=== PATIENT | female | born 1955 | race Caucasian/White ===

== ENCOUNTER → 2021-01-19 | Outpatient (CLI) | payer OTHER, SELFPAY ==
[~2021-01-19] MED LIST: ASPIRIN EC81 MG PO; ATORVASTATIN CA10 MG PO; BIOTIN PO; BIOTIN1 MG PO; CALCIUM +D PO; CALCIUM 600 +1 EAC7 PO; COMPLETE SENIO1 EACH PO; ECOTRIN81 MG PO; FAMOTIDINE40 MG PO; FISH OIL 1,0001 EAC3 PO; FISH OIL 1,0001 EAC4 PO; FLUOXETINE HCL20 M1 PO; FLUTICASONE PRO16 GM; LUTEIN PO; LUTEIN20 M1 PO; NORCO 5-325 TA1 EACH PO; RABEPRAZOLE SOD20 MG PO; VIT C PO; VITAMIN C500 M1 PO; VITAMIN C500 M4 PO
[2021-01-19 10:23] LABS: HEMOGLOBIN 13.2 gm/dl (12.3-15.3); RED BLOOD COUNT 4.34 M/UL (4.00-5.10); WHITE BLOOD COUNT 3.8 K/UL (4.5-11.0)
[2021-01-19 10:45] LABS: BUN/CREATININE RATIO 17 (0-10)
== END ==
LOC: LAB 09:06
PROVIDERS: Internal Medicine
DX: J30.9 Allergic rhinitis, unspecified (principal); E78.5 Hyperlipidemia, unspecified; R53.83 Other fatigue; E55.9 Vitamin D deficiency, unspecified
CPT/HCPCS: 36415; 80053; 80061; 82607; 82746; 84439; 84443; 85025

== ENCOUNTER → 2021-04-24 | Outpatient (CLI) | payer OTHER, SELFPAY | LOC: KOH-I 11:11 | DX: M25.531 Pain in right wrist (principal); M25.532 Pain in left wrist; M19.032 Primary osteoarthritis, left wrist; M19.031 Primary osteoarthritis, right wrist; M19.042 Primary osteoarthritis, left hand; M19.041 Primary osteoarthritis, right hand | CPT/HCPCS: 73110; 73130 ==

== ENCOUNTER → 2021-06-07 | Outpatient (CLI) | payer OTHER, SELFPAY | LOC: MAMO 12:40 | DX: Z12.31 Encounter for screening mammogram for malignant neoplasm of breast (principal); M85.80 Other specified disorders of bone density and structure, unspecified site; M85.88 Other specified disorders of bone density and structure, other site | CPT/HCPCS: 77063; 77067; 77080 ==

== ENCOUNTER 2021-12-15 11:19 | Emergency (ER) | payer OTHER | END 2021-12-15 14:11 | disposition home or self-care (01) | LOC: ER1 11:19 | DX: M20.011 Mallet finger of right finger(s) (principal); Y93.9 Activity, unspecified; Y92.009 Unspecified place in unspecified non-institutional (private) residence as the place of occurrence of the external cause; X50.1XXA Overexertion from prolonged static or awkward postures, initial encounter | CPT/HCPCS: 29130; 73130; 99283 ==

== ENCOUNTER → 2022-03-12 | Outpatient (CLI) | payer OTHER | LOC: KOH-I 13:43 | DX: M79.672 Pain in left foot (principal); M19.072 Primary osteoarthritis, left ankle and foot | CPT/HCPCS: 73630 ==

== ENCOUNTER → 2022-08-02 | Outpatient (CLI) | payer MEDICARE | LOC: LAB 16:56 | DX: R51.9 Headache, unspecified (principal) | CPT/HCPCS: 36415; 82565; 84520 ==

== ENCOUNTER → 2022-08-06 | Outpatient (CLI) | payer MEDICARE | LOC: EMI 08:45 | DX: R51.9 Headache, unspecified (principal) | CPT/HCPCS: 70553; A9577 ==